=== PATIENT | male | born 1945 | race Caucasian/White ===

== ENCOUNTER → 2017-12-08 | Emergency (ER) | payer OTHER ==
[~2017-12-08] VITALS: Ht 177.8 cm; Wt 95.3 kg
[~2017-12-08] MED LIST: COLACE100 MG PO; PERCOCET 5/3251 TAB PO; ULTRAM50 MG PO
== END | disposition left against medical advice (07) ==
LOC: ER 14:45
DX: Z53.20 Procedure and treatment not carried out because of patient's decision for unspecified reasons (principal)